=== PATIENT | male | born 1935 | race Caucasian/White ===

== ENCOUNTER 2022-08-29 00:17 | Emergency (ER) | payer MEDICARE, SELFPAY ==
[2022-08-29 00:32] VITALS: BP 135/95; PULSE 87; RESP 16; TEMP 36.5; O2SAT 95; BMI 28.6
--- NOTE | 2022-08-29 00:48 | ED_ITS ---
HPI - Male Genitourinary General Chief complaint: Urogenital Problems, Male Stated complaint: catheter leaking Time Seen by Provider: 08/29/22 00:21 Source: patient Mode of arrival: ambulatory History of Present Illness HPI Narrative: 87-year-old male underwent prostate surgery yesterday at [facility]. Reports that this was uncomplicated, it is his 3rd prostate surgery. Catheter was draining normally until this evening. He started to notice bloody urinary drainage that was leaking around the catheter, onto his clothing, because of this he presents to the emergency department, did not call on-call provider. He is no longer using any type of anticoagulants. No trauma or injury noted. Bladder scan 3 mL here in the emergency department. No abdominal pain, no fever, no nausea or vomiting. No other noted complications or concerns today. Has been eating and drinking well postoperatively, no significant pain. He states that his past medical history is otherwise stable, long-term medication is only simvastatin. Has recently stopped finasteride. Was given small amount of postoperative pain medication. Nonsmoker, he is staying with a friend here in town postoperatively. ROS is notable for the urinary issues only, denies any other skin, GI, generalized, cardiovascular or respiratory changes. Related Data Home Medications Medication Instructions Recorded Confirmed oxycodone-acetaminophen 5 mg-325 tab PO 08/29/22 mg tablet simvastatin 10 mg tablet 10 mg PO DAILY 08/29/22 08/29/22 Allergies Allergy/AdvReac Type Severity Reaction Status Date / Time No Known Drug Allergies Allergy Verified 08/29/22 00:36 PFSH PFSH Social History Smoking Status: Never smoker How often do you have a drink containing alcohol: never AUDIT-C Alcohol total score: 0 Non-prescribed substance use: denies use Exam Const: Vital Signs, click to edit/add: Vital Signs - 24 hr 08/29/22 00:32 Temperature 97.7 F Pulse Rate [Right Pulse Oximeter] 87 Respiratory Rate 16 Blood Pressure [Ri ght Upper Arm] 135/95 H Pulse Oximetry 95 Oxygen Delivery Me thod Room Air Documenting provider has reviewed patient's vital signs: yes Common normals: no apparent distress and alert General appearance: cooperative, comfortable and well kempt Orientation/consciousness: Yes awake HENMT: Common normals: normocephalic Head and scalp: normocephalic Face and sinus: normal facial exam Eye: Common normals: conjunctivae normal General eye: normal appearance of both eyes Conjunctiva: conjunctiva(e) normal Resp: Common normals: normal respiratory effort, no use of accessory muscles and clear to auscultation bilaterally Effort & inspection: able to speak in complete sentences Auscultation: clear to auscultation bilaterally Cardio: Common normals: regular rate, regular rhythm, S1 normal heart sound, S2 normal heart sound and no murmurs Rate: regular rate Rhythm: regular rhythm Heart sounds: S1 normal and S2 normal GI: Common normals: Normal to inspection, nondistended, normoactive bowel sounds present, soft to palpation, non-tender, no hepatosplenomegaly and no masses Palpation: soft and no hepatosplenomegaly : Other: Large bore catheter noted coming from the head of the penis. No current surrounding bleeding or leakage. Blood staining on shirt and thigh consistent with reported history. This is gently cleansed. No significant skin irritation. Head of the penis, scrotum all appear grossly normal. No obvious signs of injury or trauma. Neuro: Sensorium/orientation: awake and alert Speech: speech normal Gait (neuro): normal gait Psych: Common normals: thought process normal, cooperative and affect normal Appearance: well kempt Attitude: engaged Thought process: normal thought process Skin: Common normals: no rashes or lesions noted General skin exam: no rashes or lesions noted Course Course Hospital Course: Bleeding seems to have ceased, no signs of retained urine, bladder scan appropriate. Counseled patient that most likely he had a blood clot that had caused the catheter to malfunction. I recommended that we irrigate the catheter and ensure that the conduit is clear. As long as this flushes into the catheter bag, I am reassured that the urine will continue to drain properly. Discussed the mechanics of this. As long as the bleeding has ceased, this is okay. Some minor bleeding can unfortunately happen. He will need to monitor closely and keep his Urology team updated with the progress of this. Reevaluation(s) Time of Reevaluation #1: 01:08 Reevaluation #1: Nursing team inform me that the bladder irrigation went well. Flushed out a small clot, then had free flowing slightly blood-tinged urine through the catheter port as expected. No further leakage. Patient instructed on proper care, alarm symptoms and has no further questions according to the nursing team. Vital Signs Vital signs: Initial Vital Signs Temperature 97.7 F 08/29/22 00:32 Temperature Source Temporal Artery Scan 08/29/22 00:32 Pulse Rate 87 08/29/22 00:32 Pulse Rhythm Regular 08/29/22 00:32 Respiratory Rate 16 08/29/22 00:32 Blood Pressure 135/95 H 08/29/22 00:32 Blood Pressure Mean 108 H 08/29/22 00:32 Blood Pressure Position Sitting 08/29/22 00:32 Pulse Oximetry 95 08/29/22 00:32 Oxygen Delivery Method Room Air 08/29/22 00:32 Vital Signs Temperature 97.7 F 08/29/22 00:32 Pulse Rate 87 08/29/22 00:32 Respiratory Rate 16 08/29/22 00:32 Blood Pressure 135/95 H 08/29/22 00:32 Pulse Oximetry 95 08/29/22 00:32 Oxygen Delivery Method Room Air 08/29/22 00:32 Temperature 97.7 F 08/29/22 00:32 Pulse Rate 87 08/29/22 00:32 Respiratory Rate 16 08/29/22 00:32 Blood Pressure 135/95 H 08/29/22 00:32 Pulse Oximetry 95 08/29/22 00:32 Oxygen Delivery Method Room Air 08/29/22 00:32 Discharge Plan Discharge Clinical Impression: Malfunction of Yan catheter Patient Disposition: Home, Self-Care Condition: Improved Instructions: Yan Catheter Placement and Care (ED) Additional Instructions: I am glad that the bleeding has stopped. Most likely, there was a small blood clot that clogged the tip of the catheter tube. Because of this, urine and blood then leak around the catheter. We have flushed the catheter and it is now functioning properly again. Unfortunately, this can happen again. This is the reason they placed such a large catheter is because people can be prone to getting these types of clots after your type of surgery. Continue drinking plenty of fluids to help keep the catheter well drained and flushed. Call your urologist if you continue to have bleeding. Any severe bleeding, please come to the emergency department right away. Continue your previously prescribed medications. Activity Level: Activity as Tolerated Discharge Diet: Regular Prescriptions: No Action simvastatin 10 mg tablet 10 mg PO DAILY oxycodone-acetaminophen 5-325 mg tablet PO Stand Alone Forms: [employer] Info Instructions
--- NOTE | 2022-08-29 01:08 | ED.NURSE ---
Gently irrigated catheter with 30 cc normal saline. Some blood and clot came out around outside of catheter, then began flowing nicely. Educated patient that he should return to emergency room if there is not output, feels full, or has bladder spasms. Also asked him to call his urologist and update in the morning.
== END 2022-08-29 01:19 | disposition home or self-care (01) ==
PROVIDERS: Emergency Provider Family Medicine
DX: T83.098A Other mechanical complication of other urinary catheter, initial encounter (principal)
CPT/HCPCS: 99282; 99283

== ENCOUNTER 2023-12-17 10:31 | Outpatient (CLI) | payer MEDICARE, SELFPAY | END 2023-12-17 10:32 | disposition home or self-care (01) | LOC: AMB 12-21 15:54 | PROVIDERS: Visit Provider Family Medicine | DX: R41.82 Altered mental status, unspecified (principal) | CPT/HCPCS: A0425; A0427 ==

== ENCOUNTER 2023-12-17 11:01 | Observation (INO) | payer MEDICARE, SELFPAY ==
[2023-12-17] VITALS (22 sets, daily range): BP systolic 119–194; BP diastolic 60–100; PULSE 66–93; RESP 16–20; TEMP 36.8–38.2; O2SAT 87–98; BMI 27.1
--- NOTE | 2023-12-17 11:14 | CRLHL7_ITS ---
For Patients: As a result of the Cures Act, medical imaging exams and procedure reports are released immediately into your electronic medical record. You may view this report before your referring provider. If you have questions, please contact your health care provider. INDICATION: NEURO DEFICITS COMPARISON: None TECHNIQUE: CT of the head without contrast. FINDINGS: Brain Parenchyma: Global cortical involutional changes. No acute infarct, acute intracranial hemorrhage, mass effect, or midline shift. Periventricular and supraventricular white matter hypodensity, suggestive of chronic microvascular ischemic changes. 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 Extra-axial Spaces: No abnormal fluid collection. Paranasal sinuses: No significant mucosal thickening. Orbits: Unremarkable Mastoid Sinuses: Unremarkable Cranium: No acute fracture Soft tissues: Unremarkable IMPRESSION: 1. No CT evidence of an acute intracranial process. 2. Global cortical involutional changes and periventricular/supraventricular white matter hypodensities suggestive of chronic microvascular ischemic changes. Please note that all CT scans at this facility use dose modulation, iterative reconstruction, and/or weight-based dosing when appropriate to reduce radiation dose to as low as reasonably achievable. Dictated by Chris Tay MD @ 12/17/2023 11:35:23 AM (Electronically Signed)
[2023-12-17] MEDS: ONDANSETRON 2 MG/ML inj 4 MG IVP (11:19)
--- NOTE | 2023-12-17 11:20 | ED_ITS ---
HPI - General Adult General Time Seen by Provider: 11:20 Date Seen: 12/17/23 Chief complaint: Neuro Symptoms/Altered Deficit Stated complaint: Fall, poss TIA, weakness Time Seen by Provider: 12/17/23 11:20 Source: patient and RN notes reviewed Mode of arrival: ambulatory Limitations: no limitations History of Present Illness HPI narrative: This 88yo male is brought in by [facility] from his home after falling without injury, weakness. He was in his bedroom attempting to get up and simply collapsed to the floor. Febrile here on arrival but he was not aware of fever. He had his covid vaccine yesterday at 2pm. Last covid shot a few years ago caused him to lose a day in bed, had his shot on a Thursday and went to bed, did not get up until initially thinking that it was Thursday; he felt that he had memory issues at that time with the vaccine. He felt that he was having difficulty with word finding this am. No loss of motor in arms, legs. Speech is normal when he talks, just having difficulty finding his words at times. Nothing was injured with his fall. Did start vomiting on arrival here, still has some nausea at this time. No abdominal pain. No diarrhea. Was feeling fine up until his covid vaccine, last took Tylenol yesterday. He came down to [place] to stay with a friend overnight because of his reaction last time he took the COVID vaccine. He has had both [employer] and [employer]. Related Data Home Medications ?Medication ?Instructions ?Recorded ?Confirmed oxycodone-acetaminophen 5 mg-325 tab PO 08/29/22 mg tablet simvastatin 10 mg tablet 10 mg PO DAILY 08/29/22 12/17/23 levothyroxine 25 mcg tablet 25 mcg PO DAILY 12/17/23 12/17/23 Allergies Allergy/AdvReac Type Severity Reaction Status Date / Time No Known Drug Allergies Allergy Verified 08/29/22 00:36 Review of Systems Status of ROS: Reports: 6 or more systems reviewed and unremarkable except as noted in History and below [facility] Social History Smoking Status: Never smoker How often do you have a drink containing alcohol: never AUDIT-C Alcohol total score: 0 Non-prescribed substance use: denies use Exam Const: Vital Signs, click to edit/add: Vital Signs - 24 hr 12/17/23 11:11 12/17/23 11:20 12/17/23 12:05 Temperature 100.8 F H Pulse Rate 78 Pulse Rate [Right Pulse Oximeter] 93 Respiratory Rate 18 Blood Pressure 156/80 H Blood Pressure [Ri ght Upper Arm] 194/100 H Pulse Oximetry 92 98 93 Oxygen Delivery Me thod Room Air 12/17/23 12:06 12/17/23 12:09 12/17/23 12:15 Temperature 100.8 F H Pulse Rate 77 77 Pulse Rate [Right Pulse Oximeter] Respiratory Rate Blood Pressure Blood Pressure [Ri ght Upper Arm] Pulse Oximetry 92 98 Oxygen Delivery Me thod 12/17/23 12:30 12/17/23 12:36 12/17/23 12:45 Temperature Pulse Rate 77 75 76 Pulse Rate [Right Pulse Oximeter] Respiratory Rate Blood Pressure Blood Pressure [Ri ght Upper Arm] Pulse Oximetry 95 92 89 Oxygen Delivery Me thod 12/17/23 13:00 12/17/23 13:05 12/17/23 13:20 Temperature Pulse Rate 76 87 83 Pulse Rate [Right Pulse Oximeter] Respiratory Rate Blood Pressure Blood Pressure [Ri ght Upper Arm] Pulse Oximetry 87 L 93 91 Oxygen Delivery Me thod 12/17/23 13:30 12/17/23 13:35 12/17/23 13:45 Temperature Pulse Rate 80 75 70 Pulse Rate [Right Pulse Oximeter] Respiratory Rate Blood Pressure Blood Pressure [Ri ght Upper Arm] Pulse Oximetry 92 91 90 Oxygen Delivery Me thod 12/17/23 14:00 12/17/23 14:15 12/17/23 14:30 Temperature Pulse Rate 66 68 69 Pulse Rate [Right Pulse Oximeter] Respiratory Rate Blood Pressure Blood Pressure [Ri ght Upper Arm] Pulse Oximetry 91 89 Oxygen Delivery Me thod This 88-year-old male is alert, interactive, looks like he does not feel well. He can speak cyst think Maisha in full sentences and then at times will just seemed to stumble on what he wants to say, eventually does do fine. He is febrile, cheeks are flushed. Oropharynx is quite dry. Neck is supple, no donny opathy or masses. He can barely roll to the side to let me listen to his lungs, lung bases are clear, no wheezing or crackles. CV regular rate and rhythm, no murmur. Abdomen is soft, nontender, nondistended, no organomegaly. He has no lower extremity edema. Strength is about 4/5 but symmetric throughout. No tremors, no focal neurologic deficit noted. No visible cellulitis on skin visualized. Documenting provider has reviewed patient's vital signs: yes Course Course ED Course: Nursing staff sent this patient to head CT after triage. I would favor holding off on any further neurologic workup at this time, we have a febrile patient with recent COVID vaccine and significant similar reaction in the past. Will do infectious workup with chest x-ray, urinalysis and baseline labs. Will give him a L of normal saline. Nursing staff already did give 4 mg IV Zofran in he seems to have stop vomiting. Need to consider infectious etiology outside of COVID vaccine reaction. Reevaluation(s) Time of Reevaluation #1: 14:45 Reevaluation #1: This patient is still feeling miserable, temperature is down. Lactate improved with 1 L of fluids. He is in no shape to go back to independent living. I do not think he would even really be able to get up and walk independently. He is still feeling quite poorly. I do not favor further workup at time, favor hospitalization with observation and management with IV fluids and Tylenol for symptom control, Zofran if needed for recurrent nausea or vomiting. Will talk to the hospitalist. In the future, could consider doing Novavax for COVID vaccination, is a different technology and my understanding is people are tolerating this better and having less shot reaction than with the Moderna or Pfizer. Consultations Consultation #1: Have reviewed with hospitalist Ana Mratinez, she agrees to accept the patient. Did discuss that I favor observation and workup only if there is worsening or specific etiology to workup. I favor this is a shot reaction. Time: 14:54 Vital Signs Vital signs: Initial Vital Signs Temperature 100.8 F H 12/17/23 11:11 Temperature Source Temporal Artery Scan 12/17/23 11:11 Pulse Rate 93 12/17/23 11:11 Respiratory Rate 18 12/17/23 11:11 Blood Pressure 194/100 H 12/17/23 11:11 Blood Pressure Mean 131 H 12/17/23 11:11 Blood Pressure Position Sitting 12/17/23 11:11 Pulse Oximetry 92 12/17/23 11:11 Oxygen Delivery Method Room Air 12/17/23 11:11 Vital Signs Temperature 100.8 F H 12/17/23 11:11 Pulse Rate 93 12/17/23 11:11 Respiratory Rate 18 12/17/23 11:11 Blood Pressure 194/100 H 12/17/23 11:11 Pulse Oximetry 92 12/17/23 11:11 Oxygen Delivery Method Room Air 12/17/23 11:11 Temperature 100.8 F H 12/17/23 12:09 Pulse Rate 69 12/17/23 14:30 Respiratory Rate 18 12/17/23 11:11 Blood Pressure 156/80 H 12/17/23 12:05 Pulse Oximetry 89 12/17/23 14:15 Oxygen Delivery Method Room Air 12/17/23 11:11 Medications Administered Medications: Generic Name Dose Route Start Last Admin Trade Name Freq PRN Reason Stop Dose Admin Sodium Chloride 1,000 mls @ 125 mls/hr 12/17/23 11:22 12/17/23 11:30 0.9 % Sodium Chloride 1000 Ml IV Not Given .Q8H MARIELLE Discontinued Medications Generic Name Dose Route Start Last Admin Trade Name Freq PRN Reason Stop Dose Admin Acetaminophen 1,000 mg 12/17/23 11:40 12/17/23 12:09 Acetaminophen 500 Mg Tablet PO 12/17/23 11:41 1,000 mg ONCE ONE Administration Sodium Chloride 1,000 mls @ 500 mls/hr 12/17/23 11:42 12/17/23 14:04 0.9 % Sodium Chloride 1000 Ml IV 12/17/23 13:41 Infused .Q2H MARIELLE Infusion Ondansetron HCl 4 mg 12/17/23 11:26 12/17/23 11:19 Ondansetron 2 Mg/Ml Inj IVP 12/17/23 11:27 4 mg ONCE ONE Administration Medical Decision Making Lab Data Lab results reviewed: Yes I reviewed the patient's lab results Labs: Lab Results 12/17/23 12/17/23 12/17/23 Range/Units 11:18 12:08 13:12 WBC 13.12 H (4.50-11.00) K/uL RBC 5.62 (4.30-5.90) m/uL Hgb 16.3 (13.5-17.5) gm/dL Hct 51.0 (37.0-53.0) % MCV 91 (80-100) fL MCH 29 (26-34) pg MCHC 32 (32-36) gm/dL RDW Coeff of Herb 14.2 (11.5-15.5) % Plt Count 112 L (140-440) K/uL Neut % (Auto) 78.4 H (42.0-72.0) % Lymph % (Auto) 14.1 L (20-44) % [place] % (Auto) 6.7 (0.0-11.0) % Eos % (Auto) 0.1 (0.0-7.0) % Baso % (Auto) 0.4 (0.0-3.0) % Neut # (Auto) 10.30 H (1.7-7.0) K/uL Lymph # (Auto) 1.80 (0.90-2.90) K/uL [place] # (Auto) 0.90 (0.00-0.90) K/UL Eos # (Auto) 0.00 (0.00-0.50) K/uL Baso # (Auto) 0.10 (0.00-0.30) K/uL Abs Immat Gran (auto) 0.00 (0.00-0.30) K/uL Imm/Tot Granulo (auto) 0.3 % Sodium 139 (135-149) mmol/L Potassium 4.2 (3.6-5.1) mmol/L Chloride 102 (96-114) mmol/L Carbon Dioxide 23 (20-32) mmol/L Anion Gap 14 (7-15) mEq/L BUN 32 H (7-30) mg/dL Creatinine 1.6 H (0.5-1.5) mg/dL Estimated Creat Clear 35.70 Estimated GFR 41 ml/min Glucose 125 H (60-115) mg/dL Lactate 3.5 H (0.5-1.9) mmol/L Calcium 9.9 (8.4-10.6) mg/dL Total Bilirubin 0.8 (0.1-1.5) mg/dL AST 37 H (12-35) U/L ALT 22 (4-50) U/L Alkaline Phosphatase 67 (40-150) U/L Troponin I 0.03 (0.01-0.04) ng/mL C-Reactive Protein 3.2 H (0.5-1.0) mg/dL Total Protein 7.5 (6.0-8.3) g/dL Albumin 4.9 (3.3-5.0) g/dL Procalcitonin 0.31 (<0.50) ng/mL Urine Color Yellow (Yellow) Urine Appearance Clear (Clear) Urine pH 6.0 (5.0-8.5) Ur Specific [place] 1.020 (1.000-1.030) Urine Protein Trace A (Negative) Urine Glucose (UA) Negative (Negative) Urine Ketones Negative (Negative) Urine Blood Negative (Negative) Urine Nitrite Negative (Negative) Urine Bilirubin Negative (Negative) Urine Urobilinogen 0.2 (0.2-1.0) Ur Leukocyte Esterase Negative (Negative) Urine RBC 0-2 (0-2) Urine WBC 0-2 (0-5) Ur Squamous Epith Cells None (None-Few) Urine Bacteria None (None) SARS-CoV-2 (PCR) Negative SARS-CoV-2 (Negative) Influenza Type A (PCR) Negative PCR FLU A (Negative) Influenza Type B (PCR) Negative PCR FLU B (Negative) RSV (PCR) Negative PCR RSV (Negative) 12/17/23 Range/Units 14:27 WBC (4.50-11.00) K/uL RBC (4.30-5.90) m/uL Hgb (13.5-17.5) gm/dL Hct (37.0-53.0) % MCV (80-100) fL MCH (26-34) pg MCHC (32-36) gm/dL RDW Coeff of Herb (11.5-15.5) % Plt Count (140-440) K/uL Neut % (Auto) (42.0-72.0) % Lymph % (Auto) (20-44) % [place] % (Auto) (0.0-11.0) % Eos % (Auto) (0.0-7.0) % Baso % (Auto) (0.0-3.0) % Neut # (Auto) (1.7-7.0) K/uL Lymph # (Auto) (0.90-2.90) K/uL [place] # (Auto) (0.00-0.90) K/UL Eos # (Auto) (0.00-0.50) K/uL Baso # (Auto) (0.00-0.30) K/uL Abs Immat Gran (auto) (0.00-0.30) K/uL Imm/Tot Granulo (auto) % Sodium (135-149) mmol/L Potassium (3.6-5.1) mmol/L Chloride (96-114) mmol/L Carbon Dioxide (20-32) mmol/L Anion Gap (7-15) mEq/L BUN (7-30) mg/dL Creatinine (0.5-1.5) mg/dL Estimated Creat Clear Estimated GFR ml/min Glucose (60-115) mg/dL Lactate 1.4 (0.5-1.9) mmol/L Calcium (8.4-10.6) mg/dL Total Bilirubin (0.1-1.5) mg/dL AST (12-35) U/L ALT (4-50) U/L Alkaline Phosphatase (40-150) U/L Troponin I (0.01-0.04) ng/mL C-Reactive Protein (0.5-1.0) mg/dL Total Protein (6.0-8.3) g/dL Albumin (3.3-5.0) g/dL Procalcitonin (<0.50) ng/mL Urine Color (Yellow) Urine Appearance (Clear) Urine pH (5.0-8.5) Ur Specific [place] (1.000-1.030) Urine Protein (Negative) Urine Glucose (UA) (Negative) Urine Ketones (Negative) Urine Blood (Negative) Urine Nitrite (Negative) Urine Bilirubin (Negative) Urine Urobilinogen (0.2-1.0) Ur Leukocyte Esterase (Negative) Urine RBC (0-2) Urine WBC (0-5) Ur Squamous Epith Cells (None-Few) Urine Bacteria (None) SARS-CoV-2 (PCR) (Negative) Influenza Type A (PCR) (Negative) Influenza Type B (PCR) (Negative) RSV (PCR) (Negative) Imaging Data CT scan - head: Attestation: I have reviewed the pertinent imaging results. Radiologist's impression: Patient: YANETH ARNOLD Facility:?[facility] Patient ID:?[id number] Site Patient ID:?[id number]. Site :?[id number] Study:?CT-Head W/O-12/17/2023 11:27:35 AM Ordering Physician:Meera Hayden Final Report: INDICATION: NEURO DEFICITS COMPARISON: None TECHNIQUE: CT of the head without contrast. FINDINGS: Brain Parenchyma: Global cortical involutional changes. No acute infarct, acute intracranial hemorrhage, mass effect, or midline shift. Periventricular and supraventricular white matter hypodensity, suggestive of chronic microvascular ischemic changes. 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 Extra-axial Spaces: No abnormal fluid collection. Paranasal sinuses: No significant mucosal thickening. Orbits: Unremarkable Mastoid Sinuses: Unremarkable Cranium: No acute fracture Soft tissues: Unremarkable IMPRESSION: 1. No CT evidence of an acute intracranial process. 2. Global cortical involutional changes and periventricular/supraventricular white matter hypodensities suggestive of chronic microvascular ischemic changes. Please note that all CT scans at this facility use dose modulation, iterative reconstruction, and/or weight-based dosing when appropriate to reduce radiation dose to as low as reasonably achievable. Dictated by Chris Tay MD @ 12/17/2023 11:35:23 AM (Electronic Signature) Chest x-ray: Attestation: I have reviewed the pertinent imaging results. Radiologist's impression: Patient: YANETH ARNOLD Facility:?[facility] Patient ID:?[id number] Site Patient ID:?[id number]. Site :?[id number] Study:?XRay-Chest Portable 1V-12/17/2023 12:07:40 PM Ordering Physician:?Cathie Hayden Final Report: Indication: Fever Technique: Chest 1 view Comparison: None Findings/Impression: Cardiovascular and mediastinum: Normal heart size with mild aortic tortuosity and atherosclerotic calcification. Surgical clips along the left aspect of the neck. Lungs and pleural space: Lungs are clear. No sign of infiltrate or mass. No sign of pleural effusion. No pneumothorax. Bones and soft tissues: No acute findings. Dictated by Mauricio Crabtree MD @ 12/17/2023 12:13:04 PM (Electronic Signature) ECG Data Attestation: I personally reviewed and interpreted this ECG as follows: (Normal sinus rhythm, 85 beats per minute. Q-waves lateral limb leads. Flipped T-waves 2 and AVF, flat in lead 3.) Prior ECG tracings: not available for review Discharge Plan Discharge Clinical Impression: Fever Qualifiers: Fever type: post-vaccination Qualified Code(s): R50.83 - Postvaccination fever Patient Disposition: Admitted As Observation Prescriptions: No Action simvastatin 10 mg tablet 10 mg PO DAILY oxycodone-acetaminophen 5-325 mg tablet PO levothyroxine 25 mcg tablet 25 mcg PO DAILY Follow Up/Referrals: Provider,Not a Local [Primary Care Provider] -
--- NOTE | 2023-12-17 11:41 | CRLHL7_ITS ---
For Patients: As a result of the Century Cures Act, medical imaging exams and procedure reports are released immediately into your electronic medical record. You may view this report before your referring provider. If you have questions, please contact your health care provider. Indication: Fever Technique: Chest 1 view Comparison: None Findings/Impression: Cardiovascular and mediastinum: Normal heart size with mild aortic tortuosity and atherosclerotic calcification. Surgical clips along the left aspect of the neck. Lungs and pleural space: Lungs are clear. No sign of infiltrate or mass. No sign of pleural effusion. No pneumothorax. Bones and soft tissues: No acute findings. Dictated by Mauricio Crabtree MD @ 12/17/2023 12:13:04 PM (Electronically Signed)
[2023-12-17] MEDS: 0.9 % SODIUM CHLORIDE 1000 ml 1,000 ML 500 ML IV (12:01)
[2023-12-17 12:03] LABS: PCR FLU A Negative PCR FLU A (Negative); PCR FLU B Negative PCR FLU B (Negative); PCR RSV Negative PCR RSV (Negative); SARS PCR* Negative SARS-CoV-2 (Negative)
[2023-12-17] MEDS: ACETAMINOPHEN 500 MG TABLET 1000 MG PO (12:09)
[2023-12-17 12:17] LABS: Basophils Percent Auto 0.4 % (0.0-3.0); Eosinophils Percent Auto 0.1 % (0.0-7.0); Hemoglobin* 16.3 gm/dL (13.5-17.5); Immature Granulocytes Pct Auto 0.3 %; Lymphocytes Percent Auto 14.1 % (20-44); Mean Corpuscular HGB Conc 32 gm/dL (32-36); Mean Corpuscular Hemoglobin 29 pg (26-34); Mean Corpuscular Volume 91 fL (80-100); Monocytes Percent Auto 6.7 % (0.0-11.0); Neutrophils Percent Auto 78.4 % (42.0-72.0); Platelet Count* 112 K/uL (140-440); RDW Coefficient of Variation % 14.2 % (11.5-15.5); Red Blood Count 5.62 m/uL (4.30-5.90); Slide Review Reflex No; White Blood Count* 13.12 K/uL (4.50-11.00)
[2023-12-17 12:31] LABS: Lactate* 3.5 mmol/L (0.5-1.9)
--- OUTSIDE RECORDS SUMMARY | 2023-12-17 12:48 | XMS_ITS | Data Portability ---
Author Organization [facility], [facility] Address [address] [place] [address] Care Team Providers Care Delivery Assistant Name Role Phone AUGUST SANDERS Primary Care Provider Assessment No assessment recorded. Plan of Treatment Reminders Order Date Submit Date Provider Last Modified By Organization Details Last Modified Time Details Appointments None recorded. Lab None recorded. Referral None recorded. Procedures bladder scan (PROC) 2022 023 chris [facility], [address] [place] [address], [facility] [address], [place], [address], Ph 3 12:09:02 bladder scan (PROC) 2023 024 [email or web address] [facility], [address] [place] [address], [facility] [address], [place], [address], Ph 4 13:09:25 Surgeries None recorded. Imaging CT, pelvis, w/ contrast - Please fax results to [phone]. Thank You. 2022 023 [facility], [facility] [place], [address], 3 16:27:36 Medication Orders None recorded. Patient TargetsNo targets recorded. Patient Instructions Encounter Date Encounter Id Patient Instructions Last Modified By Organization Details Last Modified Time 07/01/2022 [id number] Cl Harry is an 87-year-old male with a history of hematuria for which she has been managed on finasteride and a weak urinary stream and incomplete bladder emptying that has been stable who is transitioning care to me from Dr. Guerrero due to location. He has a history of a prior negative hematuria work-up. He underwent a TURP in 2019 for his bothersome urinary symptoms. Reports he had a green light 12 years prior to the TURP. Underwent urodynamic study on 06/25/2022. Study was personally reviewed and interpreted. Maximum bladder capacity was 588 mL with normal compliance. 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 Also had terminal detrusor overactivity. Patient was only able to void a very small amount. Study is indicative of outlet obstruction. Since his last appointment, patient presented to the emergency room twice complaining of poor drainage from the catheter secondary to presence of sediment. He was also found to have a likely urinary tract infection. He is here today for cystoscopy and TRUS volume study. Cystoscopy showed significant residual prostate tissue, particularly on the left lateral lobe. No abnormalities within the bladder. Refused TRUS due to hemorrhoids. The surgical options discussed included transurethral resection of the prostate, greenlight laser ablation of the prostate, UroLift, steam ablation of the prostate, holmium laser enucleation of the prostate, and robotic and open simple prostatectomy. Recommended waiting until prostate volume can be evaluated to determine most effective surgical option. Plan: - CT pelvis with contrast for evaluation of residual prostate volume. - Recommended bladder scan prior to catheter replacement in the future. - Will call with the results of the CT. - Recommend [facility]. [facility]. Catheter out himself next day. [email or web address] Not available 07/01/2022 18:29:09 07/31/2022 [id number] Patient stopped in to clinic complaining of catheter leakage. Stated that catheter was just change yesterday in [place] and wanted to know what causes urine to leak around the catheter. Advised patient that most likely is due to having bladder spasm or a catheter blockage. Urine appeared to be draining well in the leg bag and no visible blood noted. Patient is not experiencing any other symptoms. Consult with Dr. LYONS and per his recommendation Gemtesa samples were given. Patient will take 1 Gemtesa daily for bladder spasm. Patient advised to call or triage line if any problems occurs. [email or web address] Not available 07/31/2022 14:00:57 09/25/2022 [id number] Cl Harry is an 87-year-old male with a history of hematuria for which she has been managed on finasteride and a weak urinary stream and incomplete bladder emptying that has been stable who is transitioning care to me from Dr. Guerrero due to location. He has a history of a prior negative hematuria work-up. He underwent a TURP in 2019 for his bothersome urinary symptoms. Reports he had a green light 12 years prior to the TURP. Underwent urodynamic study on 06/25/2022. Study was personally reviewed and interpreted. Maximum bladder capacity was 588 mL with normal compliance. 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 Also had terminal detrusor overactivity. Patient was only able to void a very small amount. Study is indicative of outlet obstruction. Since his last appointment, patient presented to the emergency room twice complaining of poor drainage from the catheter secondary to presence of sediment. He was also found to have a likely urinary tract infection. Cystoscopy showed significant residual prostate tissue, particularly on the left lateral lobe. No abnormalities within the bladder. Refused TRUS due to hemorrhoids. He was taken to the operating room on 08/28/2022 for a holmium laser enucleation of the prostate. Final pathology was notable for 56 g of prostate tissue resected. Less than 5% of the tissue notable for grade group 1 prostate cancer. He is here today for follow-up. Long discussion with patient regarding the significance of the pathology findings. Given his age and life expectancy, I counseled him regarding observation of his low risk answer. Alternative options discussed as well. All of his questions were answered. Long discussion with patient regarding the pathophysiology of overactive bladder. I discussed with her behavioral modifications for symptom improvement including increasing fluid intake, the double voiding twice daily, avoiding bladder irritants, timed voiding, stopping fluid intake 2 hours before bed. Additionally I recommended referral to pelvic floor physical therapy. Finally we discussed the possibility of medication for symptomatic improvement. The risks and side effects of these medications were discussed in detail. All questions were answered. Plan: - Kegel exercises - Increase fluid intake - Avoid bladder irritants - Wait on Gemtesa - Observation of prostate cancer - RTC in 6 months with flow, PVR, and AUA KHURRAM cary Not available 09/25/2022 12:21:56 03/19/2023 [id number] Cl Harry is an 87-year-old male with a history of hematuria for which she has been managed on finasteride and a weak urinary stream and incomplete bladder emptying that has been stable who is transitioning care to me from Dr. Guerrero due to location. He has a history of a prior negative hematuria work-up. He underwent a TURP in 2019 for his bothersome urinary symptoms. Reports he had a green light 12 years prior to the TURP. Underwent urodynamic study on 06/25/2022. Study was personally reviewed and interpreted. Maximum bladder capacity was 588 mL with normal compliance. 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 Also had terminal detrusor overactivity. Patient was only able to void a very small amount. Study is indicative of outlet obstruction. Since his last appointment, patient presented to the emergency room twice complaining of poor drainage from the catheter secondary to presence of sediment. He was also found to have a likely urinary tract infection. Cystoscopy showed significant residual prostate tissue, particularly on the left lateral lobe. No abnormalities within the bladder. Refused TRUS due to hemorrhoids. He was taken to the operating room on 08/28/2022 for a holmium laser enucleation of the prostate. Final pathology was notable for 56 g of prostate tissue resected. Less than 5% of the tissue notable for grade group 1 prostate cancer. 09/25/2022: I counseled patient regarding management options of the small volume of grade group 1 prostate cancer found on the HoLEP specimen. I recommended observation. AUA symptom score was 14/4. He did complain of stress incontinence but it was improving. He was using roughly 2 depends per week. He was counseled regarding behavioral modifications for symptom improvement. He returns today for follow-up. AUA SS today 1/0. Doing very well. No incontinence. Plan: - Follow up JANET cary Not available 03/19/2023 12:04:16 Reason for Referral None Reported. Results Created Date Observation Date Name Description Value Unit Range Abnormal Flag Note LastModifiedBy Organization Detail LastModifiedTime 06/21/19 23 06/20/2022 bladd er scan (PROC ) Volume (in mL) 459 Not Available [facility] [address] [facility] [address], [place], [address], Ph 06/20/2022 14:59:14 06/26/19 23 06/25/2022 URINE CULTU RE final report MICROB IOLOGY RESULT S abnormal SOURC E Aruna strong ed-[facility] t KNOWN ALLER GIES NKDA TREAT MENT bactr im DS 800mg /160m g po bid x 5 days MEDIA PLATE D AT: Media plate d on 2022 @ 4:08 PM COLON Y COUNT >100, 000 cfu/m l RESUL T Staph yloco ccus epide rmidi s (Isol ate 1) RESUL T Strep tococ cus mitis /oral is (Isol ate 2)-Cervantes scept ibili ty Testi ng not perfo rmed, usual ly Susce ptibl e To Penic illin Sensi tivit y Jocelin sis [place] te 1 ----- ----- ----- ----- ----- ----- ----- - CIPRO FLOXA VIKI <=1*S DAPTO MYCIN <=1*S GENTA MICIN <=4*S LEVOF LOXAC IN <=1*S LINEZ OLID <=2*S NITRO FURAN TOIN <=32* S OXACI LLIN <=0.2 5*S PENIC ILLIN >8 R RIFAM PIN <=1*S TETRA CYCLI NE <=4*S TRIME TH/CERVANTES LFA <=0.5 /9.5* S VANCO MYCIN 1*S Orga nisms that are susce ptibl e to tetra cycli ne are gener ally also susce ptibl e to doxyc yclin e and minoc yclin e. Any subst ituti on of drugs which have not been teste d for sensi tivit y shoul d be consi dered based on appro lynsdey usage of the drugs . Infor surinder n on doxyc yclin e and minoc yclin e can be found in the Physi tory' s Desk Refer ence or from [facility]. S= Susce ptibl e;I= Inter media te;R= Resis tant; ESBL= Resis tance due to confi rmed ESBL This lab resul t is being provi ded to you and your provi connor at the same time in compl iance with the Centu ry Cures Act. Your provi connor may not have had time to revie w and make recom menda tions based on the resul t. Latasha remy allow up to one week for provi connor revie w. Not Available [facility] [address], [place], [address], 06/29/2022 11:27:14 06/26/19 23 06/25/2022 urina lysis , dipst ick Color-Status Dark Yellow Not Available [facility] [address], [place], [address], 06/25/2022 13:11:34 06/26/19 23 06/25/2022 urina lysis , dipst ick Clarity-Stat us Slight ly Cloudy Not Available [facility] [address], [place], [address], 06/25/2022 13:11:34 06/26/19 23 06/25/2022 urina lysis , dipst ick Glucose-Stat us Negati ve Not Available [facility] [address], [place], [address], 06/25/2022 13:11:34 06/26/19 23 06/25/2022 urina lysis , dipst ick Bilirubin-St atus Negati ve Not Available [facility] [address], [place], [address], 06/25/2022 13:11:34 06/26/19 23 06/25/2022 urina lysis , dipst ick Ketones-Stat us Negati ve Not Available [facility] [address], [place], [address], 06/25/2022 13:11:34 06/26/19 23 06/25/2022 urina lysis , dipst ick Sp Sarona-Stat us 1.020 Not Available [facility] [address], [place], [address], 06/25/2022 13:11:34 06/26/19 23 06/25/2022 urina lysis , dipst ick pH-Status 6.5 Not Available [facility] [address], [place], [address], 06/25/2022 13:11:34 06/26/19 23 06/25/2022 urina lysis , dipst ick Protein-Stat us >=9.0 Not Available [facility] [address], [place], [address], 06/25/2022 13:11:34 06/26/19 23 06/25/2022 urina lysis , dipst ick Urobilinogen -Status 0.2 Not Available [facility] [address], [place], [address], 06/25/2022 13:11:34 06/26/19 23 06/25/2022 urina lysis , dipst ick Nitrates-Sta tus positi ve Not Available [facility] [address], [place], [address], 06/25/2022 13:11:34 06/26/19 23 06/25/2022 urina lysis , dipst ick Blood-Status Trace Not Available [facility] [address], [place], [address], 06/25/2022 13:11:34 06/26/19 23 06/25/2022 urina lysis , dipst ick Leuko-Status Small Not Available [facility] [address], [place], [address], 06/25/2022 13:11:34 06/26/19 23 06/25/2022 urina lysis , dipst ick Specimen Type Voided Not Available [facility] [address], [place], [address], 06/25/2022 13:11:34 09/26/19 23 09/25/2022 bladd er scan (PROC ) Volume (in mL) 23 Not Available [facility] [address] [facility] [address], [place], [address], Ph 09/25/2022 12:08:52 03/19/19 24 03/19/2023 bladd er scan (PROC ) Volume (in mL) 49 ML Not Available [facility] [address] [facility] [address], [place], [address], Ph [phone] 03/19/2023 11:56:55 07/08/19 23 07/07/2022 CT, pelvi s, w/ contr ast No observ ation record ed. [email or web address] [facility] [address] [place], [address], 07/08/2022 13:58:06 Result Notes None recorded. Problems Name Problem SNOMED Code Status Onset Date Resolution Date Notes Provider Name and Address Organization Details Recorded Time Marshal hematuria 895451857 Active 023 Godfrey Ulloa MD [address] [place], [place] [address] [place] [address], [address], [facility] 3 22:32:05 Lower urinary tract symptoms 478117780 Active 023 Godfrey Ulloa MD [address] [place] [address],[address] [place] [address], [address], [facility] 3 22:32:09 Retention of urine 552986885 Active 023 Godfrey Ulloa MD [address] [place] [address],[address] [place] [address], [address], [facility] 3 12:11:55 Problem Notes None recorded. Procedures Surgical History Date Name Laterality Status Provider Name and Address Organization Details Recorded Time 03/19/19 24 Bladder Scan completed Buffy Cuellar [facility] 03/19/2023 11:53:36 03/19/19 24 [place] - Uro[facility] completed Buffy Cuellar [facility] 03/19/2023 11:56:18 09/26/19 23 [place] - Uroflow completed Ewa Herrera [facility] 09/25/2022 12:08:12 07/31/19 23 Urethral Catheter Change completed Elvira Walter [facility] 07/30/2022 11:54:47 07/02/19 23 Cystoscopy- male completed Godfrey Ulloa MD [address] [place] [address],[address], [address], [facility] 06/30/2022 21:53:41 06/26/19 23 Urodynamic Studies completed Radha Llamas [facility] 06/25/2022 15:17:23 06/21/19 23 Teach Self Cath - Male completed Divya Obrien [facility] 06/20/2022 15:19:09 05/10/19 22 Bladder Scan completed John Yang [facility] 05/09/2021 12:22:42 05/31/19 11 Colonoscopy completed Godfrey Ulloa MD [address] [facility],[address], [place], [address], [facility] 05/20/2022 15:08:57 Cataract Surgery completed Rosemarie Duron [facility] 05/09/2021 12:13:40 excision of cervical intervertebral disc completed Rosemarie Duron [facility] 05/09/2021 12:13:58 Hernia Repair completed Godfrey Ulloa MD [address] [place] [address],[address], [place], [address], [facility] 05/20/2022 15:11:07 Imaging Results Imaging Date Name Status LastModified by Organiz ation Details LastModified Time 07/07/2022 CT, pelvis, w/ contrast completed [email or web address] [facility] [address] [place], [address], 07/08/2022 13:58:06 Procedure Notes None recorded. Medical Equipment None Reported. Allergies No known drug allergies Medications Name Sig Start Date Stop Date Status Note LastModified by Organization Details LastModified Time prednisone 10 mg tablet 05/09 completed Not Available Not Available Not Available hydrocodone 5 mg-acetamin ophen 325 mg tablet TAKE 1 TO 2 TABLETS BY MOUTH EVERY 4 HOURS NEEDED FOR PAIN. LIMIT ACETAMINO PHEN TO 4000 MG DAILY FROM ALL SOURCES 05/20 completed Not Available Not Available Not Available simvastatin 10 mg tablet TAKE 1 TABLET BY MOUTH EVERY DAY active Not Available Not Available No t Available triamcinolo ne acetonide 0.025 % topical cream APPLY SPARINGLY TO AFFECTED AREA 3 TIMES A DAY active Not Available Not Available No t Available cephalexin 500 mg capsule TAKE 1 CAPSULE BY MOUTH THREE TIMES A DAY 05/20 completed Not Available Not Available Not Available erythromyci n 5 mg/gram (0.5 %) eye ointment APPLY A SMALL AMOUNT OF OINTMENT TO AFFECTED EYELID THREE TIMES DAILY FOR 7 DAYS 05/20 completed Not Available Not Available Not Available tobramycin 0.3 % eye drops 05/09 completed Not Available Not Available Not Available finasteride 5 mg tablet TAKE 1 TABLET BY MOUTH AT BEDTIME 09/25 completed Not Available Not Available Not Available erythromyci n with ethanol 2 % topical gel APPLY AND RUB THIN LAYER TOPICALLY TO THE AFFECTED AREA TWICE DAILY IN THE MORNING AND IN THE EVENING active Not Available Not Available No t Available Asprin Ec Low Dose 81 mg tablet,roland yed release Take 1 tablet every day by oral route. active Not Available Not Available No t Available alfuzosin ER 10 mg tablet,exte nded release 24 hr 09/25 completed Not Available Not Available Not Available multivitami n active Not Available Not Available Not Available Vitamin D-3 with Aloe active Not Available Not Available No t Available glucosamine 1,000 mg-D3 25 mcg-hyaluro aminata acid 1.65 mg tablet Take by oral route. active Not Available Not Available No t Available Vitals Date Recorded Body height Body mass index (BMI) Body weight Provider Name and Address Organization Details Last Updated DateTime 09/25/2022 180.34 cm 27.9 kg/m2 81821.47 g Ewa Herrera [facility] 09/25/2022 11:54:26 Date Recorded Body height Body mass index (BMI) Body weight Provider Name and Address Organization Details Last Updated DateTime 03/19/2023 180.34 cm 27.9 kg/m2 70378.47 g Buffy Cuellar [facility] 03/19/2023 11:38:57 Social History Question Answer Notes LastModified by Organizat ion Details LastModified Time Tobacco Smoking Status Never Smoker Rosemarie bledsoe [facility] 05/09/2021 12:13:15 What Is Your Level Of Alcohol Consumption? None Information not available 05/09/2021 What Is Your Level Of Caffeine Consumption? Occasional Information not available 05/09/2021 Are You Currently Employed? No [email or web address] Information not available 03/19/2023 Race White Information no t available 05/20/2022 Ethnicity Not /Latin o Information not available 05/20/2022 Preferred Language [place] Citizen Information not available 05/20/2022 Recreational Drug Use No Information not available 05/09/2021 Could You Be ? No Information not available 05/09/2021 What Was The Date Of Your Most Recent Tobacco Screening? 03/19/2023 [email or web address] Information not available 03/19/2023 What Is Your Relationship Status? Single Information not available 05/09/2021 Do You Use Any Illicit Or Recreational Drugs? No Information not available 05/09/2021 Has Tobacco Cessation Counseling Been Provided? No Information not available 05/20/2022 Do You Or Have You Ever Used Any Other Forms Of Tobacco Or Nicotine? No Information not available 05/09/2021 Sex: Unknown Functional Status None recorded. Mental Status None recorded. Family History Relationship Description Onset Age of this Age Resolved Age Notes LastModified by Organization Details LastModified Time Mother Family history of diabetes mellitus Not available 05/09 12:12:44 Notes:Father: COPD Medical History Condition Response Sexually Transmitted Infection N Diabetes N Other N Bleeding Disorder N High Blood Pressure N Kidney Stones N High Cholesterol Y GERD/Acid Reflux N Heart Disease N Cancer N Depression N Lung Disease N Immunizations Vaccine Type Date Status Provider Name and Address Organization Details Recorded Time Influenza, high-dose, quadrivalent, PF 11/26/2022 completed Buffy Cuellar null, [facility] 03/19/2023 11:39:31 RSV, recombinant, protein subunit RSVpreF, adjuvant reconstituted, 0.5 mL, PF 12/26/2022 completed Buffy Fitzpatrickels null, [facility] 03/19/2023 11:39:31 COVID-19, mRNA, LNP-S, PF, erick-sucrose, 30 mcg/0.3 mL 12/10/2022 completed Buffy Cuellar null, [facility] 03/19/2023 11:39:31 Influenza, high-dose, quadrivalent, PF 11/26/2020 completed Godfrey Ulloa MD [address] [place] [address],[place] [phone], [facility] 05/20/2022 15:06:30 Influenza, adjuvanted, quadrivalent, PF 12/14/2019 completed Godfrey Ulloa MD [address] [place] [address],[address] [place] [address], [address], [facility] 05/20/2022 15:06:30 COVID-19, mRNA, LNP-S, PF, 30 mcg/0.3 mL dose 05/02/2020 completed Godfrey Ulloa MD [address] [place] [address],[address], [address], [facility] 05/20/2022 15:06:30 COVID-19, mRNA, LNP-S, PF, 30 mcg/0.3 mL dose 05/23/2020 completed Godfrey Ulloa MD [address] [place] [address],[address], [address], [facility] 05/20/2022 15:06:30 COVID-19, mRNA, LNP-S, PF, 30 mcg/0.3 mL dose 12/25/2020 completed Godfrey Ulloa MD [address] [place] [address],[address], [address], [facility] 05/20/2022 15:06:30 pneumococcal polysaccharide PPV23 12/29/2005 completed Godfrey Ulloa MD [address] [place] [address],[address], [place], [address], [facility] 05/20/2022 15:06:30 influenza, unspecified formulation 12/18/2003 completed Godfrey Ulloa MD [address] [place] [address],[address], [place], [address], [facility] 05/20/2022 15:06:30 influenza, unspecified formulation 12/30/2007 completed Godfrey Ulloa MD [address] [place] [address],[address], [address], [facility] 05/20/2022 15:06:30 Tdap 01/25/2018 completed Godfrey Ulloa MD [address] [place] [address],[address] [place] [address], [address], [facility] 05/20/2022 15:06:30 Pneumococcal conjugate PCV 13 12/24/2013 completed Godfrey Ulloa MD [address] [place] [address],[address] [place] [address], [address], [facility] 05/20/2022 15:06:30 zoster live 12/28/2011 completed Godfrey Ulloa MD [address] [place] [address],[address] [place] [address], [address], [facility] 05/20/2022 15:06:30 Influenza, high-dose, trivalent, PF 11/27/2016 completed Godfrey Ulloa MD [address] [place] [address],[address] [place] [address], [address], [facility] 05/20/2022 15:06:30 Influenza, high-dose, trivalent, PF 12/15/2015 completed Godfrey Ulloa MD [address] [place] [address],[address], [address], [facility] 05/20/2022 15:06:30 Influenza, high-dose, trivalent, PF 12/17/2017 completed Godfrey Ulloa MD [address] [place] [address],[address], [place], [address], [facility] 05/20/2022 15:06:30 Influenza, high-dose, trivalent, PF 12/23/2018 completed Godfrey Ulloa MD [address] [place] [address],[address], [address], [facility] 05/20/2022 15:06:30 Influenza, high-dose, trivalent, PF 12/24/2013 completed Godfrey Ulloa MD [address] [place] [address],[address], [address], [facility] 05/20/2022 15:06:30 Influenza, split virus, trivalent, preservative 03/02/2019 completed Godfrey Ulloa MD [address] [place] [address],[address] [place] [address], [phone], [facility] 05/20/2022 15:06:30 Influenza, split virus, trivalent, preservative 11/17/2008 completed Godfrey Ulloa MD [address] [place] [address],[address], [phone], [facility] 05/20/2022 15:06:30 Influenza, split virus, trivalent, preservative 12/03/2009 completed Godfrey Ulloa MD [address] [place] [address],[address], [address], [facility] 05/20/2022 15:06:30 Influenza, split virus, trivalent, preservative 12/07/2011 completed Godfrey Ulloa MD [address] [place] [address],[address], [address], [facility] 05/20/2022 15:06:30 Influenza, split virus, trivalent, preservative 12/20/2010 completed Godfrey Ulloa MD [address] [place] [address],[address], [address], [facility] 05/20/2022 15:06:30 Influenza, split virus, trivalent, preservative 01/01/2013 completed Godfrey Ulloa MD [address] [place] [address],[address], [address], [facility] 05/20/2022 15:06:30 Td (adult), 2 Lf tetanus toxoid, preservative free, adsorbed 08/06/1998 completed Godfrey Ulloa MD [address] [place] [address],[address], [address], [facility] 05/20/2022 15:06:30 Influenza, adjuvanted, quadrivalent, PF 01/07/2022 completed Ewa Mendozacherie bledsoe, [facility] 09/25/2022 11:54:31 COVID-19, mRNA, LNP-S, PF, 30 mcg/0.3 mL dose 06/19/2021 completed Ewa Mecherie ladi, [facility] 09/25/2022 11:54:31 COVID-19, mRNA, LNP-S, bivalent, PF, 30 mcg/0.3 mL dose 01/07/2022 completed Ewa Mendozacherie [facility], [facility] 09/25/2022 11:54:31 Past Encounters Encounter ID Performer Location Encounter Start Date Encounter Closed Date Diagnosis/Indication Diagnosis SNOMED-CT Code Diagnosis ICD10 Code [id number] Cl Guerrero MD _[facility] [address] [place] [address] 05/09/2021 12:02:28 05/13/2021 12:17:50 Marshal hematuria 446534029 R31.0 Slowing of urinary stream 02146788 R39.12 Incomplete emptying of urinary bladder 509462961 R39.14 [id number] Godfrey Ulloa MD [facility] [address] [place] [address] 05/20/2022 14:56:55 05/20/2022 15:55:22 Marshal hematuria [id number] R31.0 Lower urin millie tract symptoms 754191139 R39.9 [id number] MD GUALBERTO [facility] [address] [place] [address] 06/25/2022 13:00:32 06/27/2022 09:56:41 Lower urinary tract symptoms 437020567 R39.9 Marshal hematuria 94752515 5 R31.0 [id number] Godfrey Ulloa MD [facility] [address] [place] [address] 06/20/2022 13:11:59 06/20/2022 16:00:22 Retention of urine [id number] R33.9 [id number] Godfrey Ulloa MD [facility] [address] [place] [address] [address] [place] [address] 06/26/2022 12:04:26 06/26/2022 15:09:28 Retention of urine 984590765 R33.9 Lower urin millie tract symptoms [id number] R39.9 [id number] Godfrey Ulloa MD [facility] [address] [place] [address] ite Tabatha [facility] [place] [address] 07/01/2022 14:41:49 07/02/2022 09:03:40 Retention of urine 563344995 R33.9 [id number] Elvira Watson [facility] [address] [place] [address] 07/30/2022 10:57:14 08/05/2022 19:40:59 Retention of urine 865130068 R33.9 [id number] Godfrey Ulloa MD [facility] [address] [place] [address] ite Tabatha [facility] [place] [address] 07/31/2022 10:55:05 07/31/2022 15:33:46 [id number] Godfrey Ulloa MD [facility] [address] [place] [address] it Tabatha [facility] [place] [address] 09/25/2022 11:16:27 09/25/2022 14:03:36 Marshal hematuria [id number] R31.0 Lower urin millie tract symptoms 279619252 R39.9 Retention of urine 19735 4002 R33.9 [id number] Godfrey Ulloa MD [facility] [address] [place] [address] [place] [address] 03/19/2023 11:21:28 03/19/2023 13:54:25 Retention of urine 749629126 R33.9 Lower urin millie tract symptoms 015371441 R39.9 Health Concerns Section Related Observation LastModified by Organization Detai ls LastModified Time None Recorded Concern Status LastModified by Organization Details LastModified Time None Recorded Advance Directives Directive None Recorded Payers Encounter Date Sequence Insurance Name Policy Number Policy Alonzo Covered Member ID Alonzo Member ID Guarantor Name 07/01/2022 1 [place] [id number] Cl Harry [id number] Cl Harry 07/30/2022 1 [place] [id number] Cl Harry [id number] Cl Harry 07/31/2022 1 [place] [id number] Cl Harry [id number] Cl Harry 09/25/2022 1 [place] [id number] Cl Harry [id number] Cl Harry 03/19/2023 1 [place] [id number] Cl Harry [id number] Cl Harry Notes Date Note Type Note Provider Name and Address Organization Details Recorded Time 07/01/2022 text/html HPI Notes: Fernandez Harry is an 87-year-old male with a history of hematuria for which she has been managed on finasteride and a weak urinary stream and incomplete bladder emptying that has been stable who is transitioning care to pa from Dr. Guerrero due to location. He has a history of a prior negative hematuria work-up. He underwent a TURP in 2019 for his bothersome urinary symptoms. Underwent urodynamic study on 06/25/2022. Study was personally reviewed and interpreted. Maximum bladder capacity was 588 mL with normal compliance. 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 Also had terminal detrusor overactivity. Patient was only able to void a very small amount. Study is indicative of outlet obstruction. Since his last appointment, patient presented to the emergency room twice complaining of poor drainage from the catheter secondary to presence of sediment. He was also found to have a likely urinary tract infection. He is here today for cystoscopy and TRUS volume study. Reported cloudy urine and difficulty with catheter drainage. Godfrey Ulloa MD [address] [place] [address],[address], [place], [address], [facility] 07/01/2022 18:29:34 07/30/2022 text/html HPI Notes: Fernandez Harry is an 87-year-old Laila patient here for catheter change Elvira bledsoe [facility] 07/30/2022 16:46:38 09/25/2022 text/html HPI Notes: Fernandez Harry is an 87-year-old male with a history of hematuria for which she has been managed on finasteride and a weak urinary stream and incomplete bladder emptying that has been stable who is transitioning care to pa from Dr. Guerrero due to location. He has a history of a prior negative hematuria work-up. He underwent a TURP in 2019 for his bothersome urinary symptoms. Reports he had a green light 12 years prior to the TURP. Underwent urodynamic study on 06/25/2022. Study was personally reviewed and interpreted. Maximum bladder capacity was 588 mL with normal compliance. 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 Also had terminal detrusor overactivity. Patient was only able to void a very small amount. Study is indicative of outlet obstruction. Since his last appointment, patient presented to the emergency room twice complaining of poor drainage from the catheter secondary to presence of sediment. He was also found to have a likely urinary tract infection. Cystoscopy showed significant residual prostate tissue, particularly on the left lateral lobe. No abnormalities within the bladder. Refused TRUS due to hemorrhoids. He was taken to the operating room on 08/28/2022 for a holmium laser enucleation of the prostate. Final pathology was notable for 56 g of prostate tissue resected. Less than 5% of the tissue notable for grade group 1 prostate cancer. He is here today for follow-up. AUA SS today 14/4. 3s in weak stream and intermittency. 4 in nocturia. Complains of KARLIE. Improving. Wearing Depends. Minimal incontinence. One diaper gets him through 4-5 days. Not doing Kegel exercises. Godfrey Ulloa MD [address] [facility],[address], [place], [address], [facility] 09/25/2022 12:59:42 03/19/2023 text/html HPI Notes: Fernandez Harry is an 87-year-old male with a history of hematuria for which she has been managed on finasteride and a weak urinary stream and incomplete bladder emptying that has been stable who is transitioning care to pa from Dr. Guerrero due to location. He has a history of a prior negative hematuria work-up. He underwent a TURP in 2019 for his bothersome urinary symptoms. Reports he had a green light 12 years prior to the TURP. Underwent urodynamic study on 06/25/2022. Study was personally reviewed and interpreted. Maximum bladder capacity was 588 mL with normal compliance. 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 Also had terminal detrusor overactivity. Patient was only able to void a very small amount. Study is indicative of outlet obstruction. Since his last appointment, patient presented to the emergency room twice complaining of poor drainage from the catheter secondary to presence of sediment. He was also found to have a likely urinary tract infection. Cystoscopy showed significant residual prostate tissue, particularly on the left lateral lobe. No abnormalities within the bladder. Refused TRUS due to hemorrhoids. He was taken to the operating room on 08/28/2022 for a holmium laser enucleation of the prostate. Final pathology was notable for 56 g of prostate tissue resected. Less than 5% of the tissue notable for grade group 1 prostate cancer. 09/25/2022: I counseled patient regarding management options of the small volume of grade group 1 prostate cancer found on the HoLEP specimen. I recommended observation. AUA symptom score was 14/4. He did complain of stress incontinence but it was improving. He was using roughly 2 depends per week. He was counseled regarding behavioral modifications for symptom improvement. He returns today for follow-up. Has been doing very well since last appointment. Reports bladder is holding more. AUA SS today 1/0. No incontinence. Godfrey Ulloa MD [address] [facility],[address], [place], [address], [facility] 03/19/2023 13:23:52
--- OUTSIDE RECORDS SUMMARY | 2023-12-17 12:48 | XMS_ITS | Clinical Summary ---
Author Organization [facility] Address [place], [place] [address] Care Team Providers Care Folder Machine Operator Name Role Phone Lenny Trujillo MD Primary Care Provider Allergies No known active allergies Medications Medication Sig Dispensed Refills Start Date End Date Status multivitamin (MULTI-DAY) tablet Take 1 tablet by mouth once daily. 0 05/06/2017 Active cholecalciferol (VITAMIN D) 1,000 unit tablet Take 1 tablet by mouth once daily. 0 06/29/2017 Active simvastatin (ZOCOR) 10 mg tabletIndications:Damion ateral carotid artery disease, unspecified type (HC) Take 1 tablet by mouth at bedtime. 90 tablet 3 03/24/2019 Active gluc lindsay/chondro lindsay A/vit C/Mn (GLUCOSAMINE 1500 COMPLEX ORAL) Take 3 tablets by mouth once daily. Active artificial tears, peg 400-propylene glycol, (SYSTANE) 0.4-0.3 % drop ophthalmic Place 1 Drop into both eyes once daily if needed for Dry Eyes. Active aspirin 325 mg tabletIndications:BPH with urinary obstruction Take 1 tablet by mouth once daily with a meal. Ok to restart taking 5 days after surgery if urine remains clear. 0 12/05/2019 Active sennosides (SENNA) 8.6 mg tabletIndications:BPH with urinary obstruction Take 1 tablet by mouth 2 times daily if needed for constipation. 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 03/14/2019 Immunizations Name Administration Dates Next Due COVID-19 vaccine (Ahead-Bio NTech 30mcg/0.3mL) 12YO+ BIVALENT PF, MDV 01/07/2022 COVID-19 vaccine (Pfizer-Bio NTech 30mcg/0.3mL) PF, MDV 12/25/2020,05/23/2020,05/02/2020 Influenza Virus, Unspecified 12/30/2007,12/18/19 04 Influenza, High-dose Inactivated 019,11/27/2016,12/15/2015,2013 Influenza, IIV3 (Age >=3 years) 01/02/20 13,12/07/2011,12/20/2010,2009,11/17/2008 Influenza, Inactivated AIIV4 (Age 65+ Years) Preserv Free 01/07/2022,12/14/2019 Pneumococcal Poly,23-Valent (Pneumovax) 12/29/2005 Pneumococcal conj 13-Valent (Prevnar 13) 12/24/2013 Td (Age >=7 Years) 08/06/1998 Zoster (Zostavax-ZVL, live) 12/28/2011 Family History Medical History Relation Name Comments COPD Father at 85 Diabetes Mother at 74 Irregular heart beat Mother Cancer Other maternal cousin breast Anesthesia Malignant Hyperthermia No Family History Blood Disease No Family History Relation Name Status Comments Father Mother Other maternal cousin Alive Social History Tobacco Use Types Packs/Day Years Used Date Smoking Tobacco: Never Smokeless Tobacco: Never Tobacco Cessation:Counseling Given: Yes Alcohol Use Standard Drinks/Week Comments No 0 (1 standard drink = 0.6 oz pur e alcohol) PHQ-2 Answer Date Recorded PHQ-2 Score 0 05/04/2018 Social Connections Answer Date Recorded Frequency of Communication with Friends and Fami ly Not on file 03/02/2021 Financial Resource Strain Answer Date R ecorded Difficulty of Paying Living Expenses Not on file 03/02/2021 Difficulty of Paying Living Expenses Not on file 03/02/2021 Sex and Gender Information Value Date Recorded Sex Assigned at Not on file Gender Identity Not on file Sexual Orientation Not on file Obstetrics History Last Filed Vital Signs Vital Sign Reading Time Taken Comments Blood Pressure 131/73 04/25/2020 2:03 PM VERIFIER Pulse 58 04/25/2020 2:03 PM VERIFIER Temperature 36.4 ??C (97.6 ??F) 12/07/2019 8 :00 AM CDT Respiratory Rate 18 04/25/2020 2:03 PM VERIFIER Oxygen Saturation 96% 04/25/2020 2:0 3 PM VERIFIER Inhaled Oxygen Concentration - - Weight 91.4 kg (201 lb 8 oz) 04/25/2020 2:03 PM VERIFIER Pt weighed with shoes on. Height 172.7 cm (5' 8) 12/05/2019 8:01 AM CDT Body Mass Index 30.64 12/05/2019 8:01 AM CDT Plan of Treatment Health Maintenance Due Date Last Done Comments Tdap 06/22/1946 Medicare Wellness for age 65+ 2001 Tetanus booster 08/06/2008 08/06/1998 RSV vaccine for adults or (1 - 1-dose 75+ series) 06/22/2011 Zoster (shingles) series for age 50+ (2 of 3) 02/22/2012 12/28/2011 Depression screening for age 12+ 06/08/2018 06/09/19 18 BMI (ht and wt on same day) for age 18+ 11/30/2020 12/01/2019, 03/11/2019, 04/01/2017 COVID-19 vaccine series ( season) 2023 01/07/2022, 06/19/2021, 12/25/2020, Additional history exists Influenza for age 65+ 11/01/2023 01/07/2022 , 12/14/2019, 12/23/2018, Additional history exists Pneumococcal series for age 65+ Completed 4, 12/29/2005 Advance Directives * Full Code (Latest Code Status on File) Date Activated Date Inactivated Comments 12/05/2019 7:31 AM 12/07/2019 1:12 PM Question Answer Comments Code Status Discussion: Not Discussed Care Teams Folder Machine Operator Relationship Specialty Start Date End Date Lenny Trujillo MD [address] [place] [id number] PCP - General Family Practice 11/29/19
--- OUTSIDE RECORDS SUMMARY | 2023-12-17 12:49 | XMS_ITS | Continuity of Care Document ---
Author Organization [facility] Address [address] [address] [place] [address] Phone Care Team Providers Care Fruit Thinner Machine Operator Name Role Phone Lovely Burns MD Unavailable Medications Medication Instructions Dosage Effective Dates (start - stop) Status Comments DIPROLENE 0.05%CREAM(GM) as needed - Active Fish Oil 500 mg Cap Take 1 tablet by aylin th daily - Active multivitamin Tab Take 1 tablet by aylin th daily - Active glucosamine-chondroit- vit C-Mn 750 mg-600 mg-55 mg-5 mg Tab 2 Tabs by mouth once a day - Active Aspirin Low Dose 81 mg Tab, Delayed Release Take 1 tablet by mouth daily - Active Procedures Procedure Date Colonoscopy Flex; W/bx 1/mx Level Iv-surg Path Gross/micro Advance Directives Directive Yes / No Effective Date File Name No Information Encounters Encounter Description Practice Location Reason(s) For Visit Diagnoses Date Provider Providers Copied on Encounter [facility] [place], [address] [address], [place], [place], [id number], [place] tel:[phone] [facility] Colon Cancer ScreeningRectal Polyp/Benign [address]. [address] [facility], [facility] [address], [place], [place], [id number] , [place]. tel:[phone] Referring Provider: Jaime Morrissey MD F, [address] [facility] [address], [place], [address]. tel:[phone] Family History Family Member Type Diagnosis Age At Onset No Information Payers Payer name Insurance type Covered democrat ID Khanh acosta(s) Medicare [facility] [id number] [facility] CI [id number] Social History Type Description Quantity Date Captured Comments Sex Male Smoking Status No Information Chief Complaint And Reason For Visit No Information Reason For Referral Reason For Referral No Information History Of Present Illness Encounter Date Complaint History Of Prese nt Illness No Information Functional Status Date Functional Assessmen t No Information Instructions Date Instruction Additional Infor mation No Information Assessments Type Assessment Date No Information Patient Care Teams Name Effective Dates (start - stop) Status Members No Information
[2023-12-17 12:53] LABS: Troponin I* 0.03 ng/mL (0.01-0.04)
[2023-12-17 12:58] LABS: Albumin* 4.9 g/dL (3.3-5.0); Chloride* 102 mmol/L (96-114); Sodium* 139 mmol/L (135-149)
[2023-12-17 12:59] LABS: Potassium* 4.2 mmol/L (3.6-5.1)
[2023-12-17 13:00] LABS: Creatinine* 1.6 mg/dL (0.5-1.5); Estimated Glomerular Filt Rate 41 ml/min
[2023-12-17 13:01] LABS: Alanine Aminotransferase* 22 U/L (4-50); Alkaline Phosphatase* 67 U/L (40-150); Anion Gap 14 mEq/L (7-15); Aspartate Amino Transferase* 37 U/L (12-35); Bilirubin Total* 0.8 mg/dL (0.1-1.5); Blood Urea Nitrogen* 32 mg/dL (7-30); Carbon Dioxide* 23 mmol/L (20-32); Total Protein* 7.5 g/dL (6.0-8.3)
[2023-12-17 13:02] LABS: Calcium* 9.9 mg/dL (8.4-10.6); Glucose* 125 mg/dL (60-115)
[2023-12-17 13:04] LABS: C Reactive Protein* 3.2 mg/dL (0.5-1.0)
[2023-12-17 13:18] LABS: Procalcitonin* 0.31 ng/mL (<0.50)
[2023-12-17 13:26] LABS: Appearance Urine Clear (Clear); Bilirubin Urine Negative (Negative); Blood Urine Negative (Negative); Color Urine Yellow (Yellow); Glucose Urine Negative (Negative); Ketones Urine Negative (Negative); Leukocyte Esterase Urine Negative (Negative); Nitrite Urine Negative (Negative); Protein Urine Trace (Negative); Urobilinogen Urine 0.2 (0.2-1.0)
[2023-12-17 13:36] LABS: RBC Urine 0-2 (0-2); WBC Urine 0-2 (0-5)
[2023-12-17 14:46] LABS: Lactate* 1.4 mmol/L (0.5-1.9)
--- NOTE | 2023-12-17 16:09 | PM.IMHP1 ---
Hospitalist- H&P: HPI History of Present Illness Date Seen: 12/17/23 Chief complaint: Fall, poss TIA, weakness Narrative: Cl Harry is a 88 year old male past medical history significant for hyperlipidemia, bilateral carotid artery disease, hypothyroidism, BPH with urinary obstruction, gait instability is admitted for observation following a suspected adverse reaction to a Covid vaccine. Patient resides in [place] and has been staying with a local friend since yesterday. He had his COVID vaccine yesterday at approximately 2:00 p.m.. Prior to his vaccination he felt fine, his usual self. Following the vaccination yesterday, the evening went well. He went to bed as he usually does, other than being at his friend's house, but this morning awoke feeling quite weak. Attempted to walk to and from the bathroom and when returning back to the bed, collapsed with his legs under him and his left arm on top of the bed. EMS was called as he could not get himself up and his friend was unable to assist. Friend reports mild confusion this morning, slowly clearing now. Patient denies headache or dizziness. Admits to chronic gait instability without a known cause. Denies falling. Denies chest pain or shortness of breath. Denies new or worsening cough. Was unaware of a fever until taken in the ED, at 100.8?. Admits to vomiting in the ambulance, none since. Denies diarrhea. No change in stools or urination. Patient reports of the 5 COVID vaccinations he has had in the past, he has had a reaction now to 2 of them. The previous was a couple of years ago when he tells me he had the vaccination on a Thursday afternoon and woke up morning, missing all of Thursday in between. Had his flu vaccination a couple of weeks ago without adverse reaction. Nonsmoker. Denies alcohol use. Lives in [place]. His POA is Destiny, his friend that is with him currently. Wishes to be full code. Review of Systems Narrative: REVIEW OF SYSTEMS: Complete review of systems performed and negative unless otherwise stated in HPI or below. [facility] Medical History (Updated 12/17/23 @ 17:18 by Ana Ramirez PA-C) CKD (chronic kidney disease) ?N18.9 - Chronic kidney disease, unspecified (ICD-10) Gait instability ?R26.81 - Unsteadiness on feet (ICD-10) BPH with urinary obstruction ?N40.1 - Benign prostatic hyperplasia with lower urinary tract symptoms (ICD-10) ?N13.8 - Other obstructive and reflux uropathy (ICD-10) Bilateral carotid artery disease ?I77.9 - Disorder of arteries and arterioles, unspecified (ICD-10) Hypothyroidism ?E03.9 - Hypothyroidism, unspecified (ICD-10) Hyperlipidemia ?E78.5 - Hyperlipidemia, unspecified (ICD-10) Social History Smoking Status: Never smoker How often do you have a drink containing alcohol: never AUDIT-C Alcohol total score: 0 Non-prescribed substance use: denies use Meds Home Medications and Allergies Home Medications ?Medication ?Instructions ?Recorded ?Confirmed ?Type simvastatin 10 mg tablet 10 mg PO DAILY 08/29/22 12/17/23 History levothyroxine 25 mcg tablet 25 mcg PO DAILY 12/17/23 12/17/23 History Allergies Allergy/AdvReac Type Severity Reaction Status Date / Time No Known Drug Allergies Allergy Verified 08/29/22 00:36 Exam Narrative: Exam Narrative: PHYSICAL EXAM General: Pleasant, conversant, NAD HEENT: Normocephalic, atraumatic, sclera white, EOMI, oral mucosa moist Cardiovascular: RRR, S1S2. No pitting edema Pulmonary: CTA bilaterally without rhonchi, rales, expiratory wheezes. No dyspnea Abdominal: Soft, nondistended, NTTP Neurological: Alert, answering questions appropriately at this time, cranial nerves intact, no focal findings Extremities: No gross joint deformity or swelling. AROMI. Neurovascularly intact Skin: Warm, dry. Const: Vital Signs, click to edit/add: Vital Signs - 24 hr 12/17/23 11:11 12/17/23 11:20 12/17/23 12:05 Temperature 100.8 F H Pulse Rate 78 Pulse Rate [Right Pulse Oximeter] 93 Respiratory Rate 18 Blood Pressure 156/80 H Blood Pressure [Ri ght Upper Arm] 194/100 H Pulse Oximetry 92 98 93 Oxygen Delivery Me thod Room Air 12/17/23 12:06 12/17/23 12:09 12/17/23 12:15 Temperature 100.8 F H Pulse Rate 77 77 Pulse Rate [Right Pulse Oximeter] Respiratory Rate Blood Pressure Blood Pressure [Ri ght Upper Arm] Pulse Oximetry 92 98 Oxygen Delivery Ks thod 12/17/23 12:30 12/17/23 12:36 12/17/23 12:45 Temperature Pulse Rate 77 75 76 Pulse Rate [Right Pulse Oximeter] Respiratory Rate Blood Pressure Blood Pressure [Ri ght Upper Arm] Pulse Oximetry 95 92 89 Oxygen Delivery Ks thod 12/17/23 13:00 12/17/23 13:05 12/17/23 13:20 Temperature Pulse Rate 76 87 83 Pulse Rate [Right Pulse Oximeter] Respiratory Rate Blood Pressure Blood Pressure [Ri ght Upper Arm] Pulse Oximetry 87 L 93 91 [facility] 12/[facility] 13:30 12/17/23 13:35 12/17/23 13:45 Temperature Pulse Rate 80 75 70 Pulse Rate [Right Pulse Oximeter] Respiratory Rate Blood Pressure Blood Pressure [Ri ght Upper Arm] Pulse Oximetry 92 91 90 [facility] 12/17/23 14:00 12/17/23 14:15 12/17/23 14:30 Temperature Pulse Rate 66 68 69 Pulse Rate [Right Pulse Oximeter] Respiratory Rate Blood Pressure Blood Pressure [Ri ght Upper Arm] Pulse Oximetry 91 89 [facility] - H&P: Result Labs Labs: Short CBC 12/17/23 Range/Units 12:08 WBC 13.12 H (4.50-11.00) K/uL Hgb 16.3 (13.5-17.5) gm/dL Hct 51.0 (37.0-53.0) % Plt Count 112 L (140-440) K/uL BMP 12/17/23 12:08 Sodium 139 Potassium 4.2 Chloride 102 Carbon Dioxide 23 BUN 32 H Creatinine 1.6 H Glucose 125 H Calcium 9.9 Cardiac Enzymes 12/17/23 Range/Units 12:08 Troponin I 0.03 (0.01-0.04) ng/mL Liver Function 12/17/23 Range/Units 12:08 Total Bilirubin 0.8 (0.1-1.5) mg/dL AST 37 H (12-35) U/L ALT 22 (4-50) U/L Alkaline Phosphatase 67 (40-150) U/L Albumin 4.9 (3.3-5.0) g/dL Urine 12/17/23 Range/Units 13:12 Urine Color Yellow (Yellow) Urine Appearance Clear (Clear) Urine pH 6.0 (5.0-8.5) Ur Specific Donner 1.020 (1.000-1.030) Urine Protein Trace A (Negative) Urine Glucose (UA) Negative (Negative) ECG Attestation: I personally reviewed and interpreted this ECG as follows: Pacemaker model: NSR, ventricular rate 85, QTC 437 Imaging Chest x-ray: Attestation: I have reviewed the pertinent imaging results. Radiologist's impression: Cardiovascular and mediastinum: Normal heart size with mild aortic tortuosity and atherosclerotic calcification. Surgical clips along the left aspect of the neck. Lungs and pleural space: Lungs are clear. No sign of infiltrate or mass. No sign of pleural effusion. No pneumothorax. Bones and soft tissues: No acute findings. CT scan - head: Attestation: I have reviewed the pertinent imaging results. Radiologist's impression: Brain Parenchyma: Global cortical involutional changes. No acute infarct, acute intracranial hemorrhage, mass effect, or midline shift. Periventricular and supraventricular white matter hypodensity, suggestive of chronic microvascular ischemic changes. 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 Extra-axial Spaces: No abnormal fluid collection. Paranasal sinuses: No significant mucosal thickening. Orbits: Unremarkable Mastoid Sinuses: Unremarkable Cranium: No acute fracture Soft tissues: Unremarkable IMPRESSION: 1. No CT evidence of an acute intracranial process. 2. Global cortical involutional changes and periventricular/supraventricular white matter hypodensities suggestive of chronic microvascular ischemic changes. Please note that all CT scans at this facility use dose modulation, iterative reconstruction, and/or weight-based dosing when appropriate to reduce radiation dose to as low as reasonably achievable. Assessment and Plan Assessment and plan (1) Weakness: Problem comment: Collapsed at friend's home. Report of mild confusion (described as mentally slow), clearing H/o adverse reaction to previous COVID vaccine CT head without acute intracranial abnormalities PT/OT consults Status: Acute (2) Fever: Problem comment: 100.8? in ED Likely post vaccine reaction, however continue to monitor for new or worsening symptomatology, further workup as needed Tylenol p.r.n. Status: Acute (3) Leukocytosis: Problem comment: WBC 13.12 with mild left shift, lactate 3.5, improved to 1.4 following IVF, CRP 3.2, procalcitonin 0.31, triple swab negative CXR shows lungs are clear without evidence of infiltrate UA unremarkable No report of cough, shortness of breath, abdominal pain Suspect reactionary, will defer antibiotics at this time, recheck in a.m., further workup warranted if new or worsening symptoms Status: Acute (4) CKD (chronic kidney disease): Problem comment: Stage IIIB Creatinine 1.6, GFR 41 which appears to be at baseline. Previous December 2019 creatinine 1.55, GFR 43 Avoid nephrotoxic medications, continue to monitor Status: Acute (5) Hyperlipidemia: Problem comment: Continue statin Status: Acute (6) Hypothyroidism: Problem comment: Continue levothyroxine TSH ordered Status: Acute (7) Bilateral carotid artery disease: Problem comment: Continue statin Status: Acute (8) Gait instability: Problem comment: Chronic, without self reported falls PT/OT consult Status: Acute Total Time Spent Total Time Spent: Total time spent caring for the patient today was 75 minutes. This includes time spent for the visit reviewing the chart, time spent during the visit, time spent after the visit and documentation and planning in coordination of care.
[2023-12-17] MEDS: SIMVASTATIN 10 MG TABLET PO (18:17)
[2023-12-17] MEDS: SODIUM CHLORIDE 0.9 % (FLUSH) 10 ML SYRINGE 5 ML IVF (21:13)
[2023-12-17] MEDS: ENOXAPARIN 40 MG/0.4 ML INJ SUBCUT (21:13)
[2023-12-18 00:47] VITALS: PULSE 69
[2023-12-18 02:16] VITALS: BP 129/78; PULSE 70; RESP 16; TEMP 37.3; O2SAT 92
--- NOTE | 2023-12-18 05:48 | PC.NURSE ---
End of shift [id number]: Upon initial assessment Pt was alert to self, month, and . Pt was having mild confusion with difficulty finding words during question asking. Pt denied pain for the entirety of the shift. Pt denies headache/dizziness/SOB/CP. Pt is continent of the bladder. Pt A1 GB W. SL in L AC. LS CTA. Pt remained afebrile for the shift. TELE. Encouragement on drinking fluids is continuing to be taught by fiction and nonfiction writer prose. Pt appears resting comfortably with call light in reach.
[2023-12-18 06:19] LABS: Hematocrit 43.6 % (37.0-53.0); Hemoglobin* 14.1 gm/dL (13.5-17.5); Mean Corpuscular HGB Conc 32 gm/dL (32-36); Mean Corpuscular Hemoglobin 29 pg (26-34); Mean Corpuscular Volume 89 fL (80-100); Platelet Count* 100 K/uL (140-440); White Blood Count* 8.97 K/uL (4.50-11.00)
[2023-12-18 06:22] LABS: Slide Review Reflex No
[2023-12-18 06:32] LABS: Chloride* 105 mmol/L (96-114)
[2023-12-18 06:33] LABS: Sodium* 135 mmol/L (135-149)
[2023-12-18 06:35] LABS: Creatinine* 1.7 mg/dL (0.5-1.5); Estimated Glomerular Filt Rate 39 ml/min
[2023-12-18 06:36] LABS: Anion Gap 11 mEq/L (7-15); Blood Urea Nitrogen* 31 mg/dL (7-30); Calcium* 9.1 mg/dL (8.4-10.6); Carbon Dioxide* 19 mmol/L (20-32); Glucose* 117 mg/dL (60-115)
[2023-12-18 06:39] LABS: C Reactive Protein* 7.5 mg/dL (0.5-1.0)
[2023-12-18 07:16] VITALS: PULSE 64
[2023-12-18 07:20] VITALS: PULSE 66; RESP 18
[2023-12-18 07:45] VITALS: BP 127/70; PULSE 66; RESP 18; TEMP 37.5; O2SAT 91
[2023-12-18] MEDS: SODIUM CHLORIDE 0.9 % (FLUSH) 10 ML SYRINGE 5 ML IVF (08:35)
[2023-12-18 11:00] VITALS: BP 130/76; PULSE 75; RESP 18; TEMP 37.3; O2SAT 95
--- NOTE | 2023-12-18 11:30 | PC.NURSE ---
Discharged: pt alert, oriented and vitally stable. Pt states that mobility and confusion have improved since admission. Pt up via sba and tolerates well, regular diet and tolerates well and was able to dress independently. Pt is continent of bowel and bladder. Discharge instruction given to pt and friend, pt discharged home with friend at 1112.
--- NOTE | 2023-12-18 15:24 | PM.DS1 ---
DS: Providers Provider Date Seen: 12/18/23 Date of admission: 12/17/23 15:19 Primary care physician: Not a Local Provider Admitting Clinician: Frankie Jarvis MD Consults: 12/17/23 16:14 Consult to Physical Therapy [CONS] Routine Comment: Reason(s) for PT Consult:: Evaluate and Treat Any Restrictions?:: No Restrictions Consult to [facility] [CONS] Routine Comment: Reason for Consult:: Social Service Consult Attending Physician on discharge: Frankie Jarvis MD Date of Discharge: 12/18/23 DS: Diagnosis Discharge Diagnosis (1) Adverse effect of mRNA COVID-19 vaccine: Status: Acute Problem details: 12/17/2023, fever, confusion, weakness - all normalized during short hospital stay (2) Fever: Status: Acute Problem details: 100.8? in ED Likely post vaccine reaction, however continue to monitor for new or worsening symptomatology, further workup as needed Tylenol p.r.n. Normalize during short hospital stay (3) Weakness: Status: Acute Problem details: Collapsed at friend's home. Report of mild confusion (described as mentally slow), clearing H/o adverse reaction to previous COVID vaccine CT head without acute intracranial abnormalities PT/OT consults Normalize during short hospital stay (4) Leukocytosis: Status: Acute Problem details: WBC 13.12 with mild left shift, lactate 3.5, improved to 1.4 following IVF, CRP 3.2, procalcitonin 0.31, triple swab negative CXR shows lungs are clear without evidence of infiltrate UA unremarkable No report of cough, shortness of breath, abdominal pain Suspect reactionary, will defer antibiotics at this time, recheck in a.m., further workup warranted if new or worsening symptoms Normalize during short hospital stay (5) Gait instability: Status: Acute Problem details: Chronic, without self reported falls PT/OT consult Normalized in short hospital stay (6) Bilateral carotid artery disease: Status: Acute Problem details: Continue statin (7) CKD (chronic kidney disease): Status: Acute Problem details: Stage IIIB Creatinine 1.6, GFR 41 which appears to be at baseline. Previous December 2019 creatinine 1.55, GFR 43 Avoid nephrotoxic medications, continue to monitor (8) Hypothyroidism: Status: Acute Problem details: Continue levothyroxine TSH ordered (9) Hyperlipidemia: Status: Acute Problem details: Continue statin DS: Summary Hospital Course Hospital Course: Admission history of present illness: ?Cl Harry is a 88 year old male past medical history significant for hyperlipidemia, bilateral carotid artery disease, hypothyroidism, BPH with urinary obstruction, gait instability is admitted for observation following a suspected adverse reaction to a Covid vaccine. Patient resides in [place] and has been staying with a local friend since yesterday. He had his COVID vaccine yesterday at approximately 2:00 p.m.. Prior to his vaccination he felt fine, his usual self. Following the vaccination yesterday, the evening went well. He went to bed as he usually does, other than being at his friend's house, but this morning awoke feeling quite weak. Attempted to walk to and from the bathroom and when returning back to the bed, collapsed with his legs under him and his left arm on top of the bed. EMS was called as he could not get himself up and his friend was unable to assist. Friend reports mild confusion this morning, slowly clearing now. Patient denies headache or dizziness. Admits to chronic gait instability without a known cause. Denies falling. Denies chest pain or shortness of breath. Denies new or worsening cough. Was unaware of a fever until taken in the ED, at 100.8?. Admits to vomiting in the ambulance, none since. Denies diarrhea. No change in stools or urination. Patient reports of the 5 COVID vaccinations he has had in the past, he has had a reaction now to 2 of them. The previous was a couple of years ago when he tells me he had the vaccination on a Thursday afternoon and woke up morning, missing all of Thursday in between. Had his flu vaccination a couple of weeks ago without adverse reaction. ?Nonsmoker. Denies alcohol use. Lives in [place]. His POA is Destiny, his friend that is with him currently. Wishes to be full code.? Condition improved during short hospital stay and normalized. All signs and symptoms of scribe mobile to adverse reaction to mRNA COVID vaccine. Time Spent with Patient Time attestation: Total time spent providing and/or coordinating discharge services: Exam Narrative: Exam Narrative: General: Pleasant, conversant, NAD HEENT: Normocephalic, atraumatic, sclera white, EOMI, oral mucosa moist Cardiovascular: RRR, S1S2. No pitting edema Pulmonary: CTA bilaterally without rhonchi, rales, expiratory wheezes. No dyspnea Abdominal: Soft, nondistended, NTTP Neurological: Alert, answering questions appropriately at this time, cranial nerves intact, no focal findings Extremities: No gross joint deformity or swelling. AROMI. Neurovascularly intact. Independent transfer, station, and gait. Skin: Warm, dry. Const: Vital Signs, click to edit/add: Vital Signs - 24 hr 12/17/23 16:14 12/17/23 17:48 12/17/23 17:48 Temperature 100 F H 100 F H Pulse Rate Pulse Rate [Pulse Oximeter] Respiratory Rate 18 18 18 Blood Pressure [Le ft Arm] 127/76 127/76 Pulse Oximetry 96 96 96 Oxygen Delivery Me thod Room Air Room Air Room Air 12/17/23 19:00 12/17/23 23:45 12/18/23 00:47 Temperature 99.7 F H 98.2 F Pulse Rate 69 Pulse Rate [Pulse Oximeter] 76 71 Respiratory Rate 20 16 Blood Pressure [Le ft Arm] 145/77 H 119/60 Pulse Oximetry 97 95 Oxygen Delivery Wa thod Room Air Room Air 12/18/23 02:16 12/18/23 07:16 12/18/23 07:20 Temperature 99.2 F Pulse Rate 64 Pulse Rate [Pulse Oximeter] 70 66 Respiratory Rate 16 18 Blood Pressure [Le ft Arm] 129/78 Pulse Oximetry 92 Oxygen Delivery Wa thod Room Air 12/18/23 07:45 12/18/23 11:00 Temperature 99.5 F 99.2 F Pulse Rate Pulse Rate [Pulse Oximeter] 66 75 Respiratory Rate 18 18 Blood Pressure [Le ft Arm] 127/70 130/76 Pulse Oximetry 91 95 Oxygen Delivery Wa thod Room Air Room Air DS: Data Data Completed and Pending Labs on day of discharge: Labs from last 24 hours 12/18/23 12/17/23 12/17/23 05:35 17:16 12:08 WBC 8.97 RBC 4.90 Hgb 14.1 Hct 43.6 MCV 89 MCH 29 MCHC 32 Plt Count 100 L Sodium 135 Potassium 4.0 Chloride 105 Carbon Dioxide 19 L Anion Gap 11 BUN 31 H Creatinine 1.7 H Estimated Creat Clear 33.60 Estimated GFR 39 Glucose 117 H Calcium 9.1 C-Reactive Protein 7.5 H TSH 1.770 Lab Acknowledgement Test Added Imaging CT scan - head: Attestation: I have reviewed the pertinent imaging results. Radiologist's impression: 1. No CT evidence of an acute intracranial process. 2. Global cortical involutional changes and periventricular/supraventricular white matter hypodensities suggestive of chronic microvascular ischemic changes. Chest x-ray: Attestation: I have reviewed the pertinent imaging results. Radiologist's impression: Findings/Impression: Cardiovascular and mediastinum: Normal heart size with mild aortic tortuosity and atherosclerotic calcification. Surgical clips along the left aspect of the neck. Lungs and pleural space: Lungs are clear. No sign of infiltrate or mass. No sign of pleural effusion. No pneumothorax. Bones and soft tissues: No acute findings. Discharge Plan Discharge Disposition: Home, Self-Care Date of Admission: 12/17/23 15:19 Attending Provider on Discharge: Frankie Jarvis Primary Care Provider: Provider,Not a Local Condition: Improved Anticipated Discharge Date/Time: 12/18/23 11:30 Discharge Medications: Continued simvastatin 10 mg tablet 10 mg PO DAILY levothyroxine 25 mcg tablet 25 mcg PO DAILY Discharge Orders: Discharge Order (Routine); Ordered 12/18/23 Ordered By: Frankie Jarvis Patient Education: SARS-CoV-2 (By injection) (Novavax), Fall Prevention for Older Adults (DC) Additional Instructions: 1. Discuss with primary assurance services manager health care the possibility of Novavax COVID vaccine in the future due to adverse effect associated with Moderna and Pfizer mRNA vaccines on 2 different occasions. 2. Follow-up with primary assurance services manager health care as planned and as needed. 3. Continue with all efforts to remain as safely independent as possible for as long as possible, physical efforts, social efforts, emotional efforts, and cognitive efforts. Activity Level: No Restrictions and Activity as Tolerated Discharge Diet: Regular Follow Up Appointments: Provider,Not a Local [Primary Care Provider] - Forms: iversity Info Instructions
== END 2023-12-18 11:12 | disposition home or self-care (01) ==
LOC: ED 15:00 → MEDSURG 15:19
PROVIDERS: Physician Assistant; Admitting Provider Internal Medicine; Emergency Provider Family Medicine; Visit Provider Internal Medicine
DX: R50.83 Postvaccination fever (principal); T50.B95A Adverse effect of other viral vaccines, initial encounter; D72.829 Elevated white blood cell count, unspecified; R50.9 Fever, unspecified; R53.1 Weakness; R41.0 Disorientation, unspecified; R11.10 Vomiting, unspecified; R26.81 Unsteadiness on feet; I77.9 Disorder of arteries and arterioles, unspecified; N18.32 Chronic kidney disease, stage 3b; E03.9 Hypothyroidism, unspecified; E78.5 Hyperlipidemia, unspecified; N40.0 Benign prostatic hyperplasia without lower urinary tract symptoms; Z78.9 Other specified health status
CPT/HCPCS: 36415; 70450; 71045; 80048; 80053; 81001; 82962; 83605; 84145; 84443; 84484; 85025; 85027; 86140; 87631; 93005; 94761; 96361; 96372; 96374; 97116; 97161; 99284; 99285; G0378; A9270; J1650; J2405; J7030